=== PATIENT | male | born 1985 | race Caucasian/White ===

== ENCOUNTER 2022-06-19 19:51 | Emergency (ER) | payer BC, OTHER ==
[2022-06-19 20:16] VITALS: BP 165/106; PULSE 73; RESP 16; TEMP 98
--- NOTE | 2022-06-19 20:45 | XR ---
EXAMINATION TYPE: XR hand complete RT DATE OF EXAM: 06/19/2022 COMPARISON: NONE HISTORY: Pain TECHNIQUE: 3 views FINDINGS: There is nondisplaced transverse fracture of the head of the second metacarpal. No dislocat ion. There is slight impaction. The fingers are intact. There is some soft tissue swelling on the yuni sum of the hand. Carpal bones are intact. IMPRESSION: Acute distal second metacarpal fracture.
== END 2022-06-19 21:33 | disposition left against medical advice (07) ==
LOC: EC 19:51
DX: Z53.21 Procedure and treatment not carried out due to patient leaving prior to being seen by health care provider (principal)
CPT/HCPCS: 99499